=== PATIENT | female | born 1985 | race Hispanic/Latino ===

== ENCOUNTER 2018-03-30 07:47 | Emergency (ER) | payer OTHER ==
[2018-03-30] MEDS ORDERED: KETOROLAC TROMETHAMINE 60 MG/2 ML VIAL ONE (08:06)
== END 2018-03-30 08:55 | disposition home or self-care (01) ==
LOC: EDH 07:47
DX: S80.01XA Contusion of right knee, initial encounter (principal); X58.XXXA Exposure to other specified factors, initial encounter; Y93.89 Activity, other specified; Y92.59 Other trade areas as the place of occurrence of the external cause; Y99.8 Other external cause status
CPT/HCPCS: 73562; 96372; 99284; J1885

== ENCOUNTER 2019-02-01 16:47 | Emergency (ER) | payer OTHER ==
[2019-02-01] MEDS ORDERED: IBUPROFEN 400 MG TABLET ONE (17:30)
== END 2019-02-01 19:15 | disposition home or self-care (01) ==
LOC: EDH 16:47
DX: S43.402A Unspecified sprain of left shoulder joint, initial encounter (principal); S39.012A Strain of muscle, fascia and tendon of lower back, initial encounter; S80.01XA Contusion of right knee, initial encounter; M79.642 Pain in left hand; M79.641 Pain in right hand; W01.0XXA Fall on same level from slipping, tripping and stumbling without subsequent striking against object, initial encounter; Y93.89 Activity, other specified; Y92.238 Other place in hospital as the place of occurrence of the external cause; Y99.8 Other external cause status
CPT/HCPCS: 73030; 73562

== ENCOUNTER → 2019-03-29 | Outpatient (CLI) | payer OTHER | END | disposition home or self-care (01) | LOC: RAH 08:43 | PROVIDERS: ATTEND Family Medicine | DX: S46.912A Strain of unspecified muscle, fascia and tendon at shoulder and upper arm level, left arm, initial encounter (principal); S83.91XA Sprain of unspecified site of right knee, initial encounter; X58.XXXA Exposure to other specified factors, initial encounter; Y93.89 Activity, other specified; Y92.89 Other specified places as the place of occurrence of the external cause; Y99.8 Other external cause status | CPT/HCPCS: 73221 ==

== ENCOUNTER → 2019-04-17 | Outpatient (CLI) | payer OTHER | END | disposition home or self-care (01) | LOC: RAH 14:03 | PROVIDERS: ATTEND Family Medicine | DX: S83.91XA Sprain of unspecified site of right knee, initial encounter (principal); S43.402A Unspecified sprain of left shoulder joint, initial encounter; X58.XXXA Exposure to other specified factors, initial encounter; Y93.89 Activity, other specified; Y92.89 Other specified places as the place of occurrence of the external cause; Y99.8 Other external cause status | CPT/HCPCS: 73721 ==

== ENCOUNTER 2020-06-22 11:14 | Emergency (ER) | payer OTHER ==
[2020-06-22] MEDS ORDERED: TETRACAINE HCL 0.5% 4 ML OPHTH SOLN ONE (11:18)
== END 2020-06-22 11:34 | disposition home or self-care (01) ==
LOC: EDH 11:14
DX: S05.01XA Injury of conjunctiva and corneal abrasion without foreign body, right eye, initial encounter (principal); H10.89 Other conjunctivitis; X58.XXXA Exposure to other specified factors, initial encounter; Y93.89 Activity, other specified; Y92.89 Other specified places as the place of occurrence of the external cause; Y99.8 Other external cause status

== ENCOUNTER → 2022-07-11 | Outpatient (CLI) | payer OTHER | END | disposition home or self-care (01) | LOC: RAH 08:20 | PROVIDERS: ATTEND Obstetrics & Gynecology | DX: Z34.91 Encounter for supervision of normal pregnancy, unspecified, first trimester (principal); Z3A.01 Less than 8 weeks gestation of pregnancy | CPT/HCPCS: 76801 ==

== ENCOUNTER → 2022-12-13 | Outpatient (CLI) | payer OTHER ==
[2022-12-13 10:47] LABS: ALANINE AMINOTRANSFERASE 22 U/L (12-78); ALBUMIN 2.8 g/dL (3.5-5.0); ASPARTATE AMINOTRANSFERASE 18 U/L (10-37); CARBON DIOXIDE 22 mmol/L (21-32); CHLORIDE 103 mmol/L (101-111); CREATININE 0.3 mg/dL (0.5-1.5); GLOMERULAR FILTR. RATE CALC 265 mL/min (>60); GLUCOSE,RANDOM 107 mg/dL (70-105); POTASSIUM 3.9 mmol/L (3.5-5.1); SODIUM SERUM 135 mmol/L (136-145); TOTAL PROTEIN, SERUM 6.3 g/dL (6.0-8.3); UREA NITROGEN, BLOOD 10 mg/dL (7-18)
[2022-12-13 10:49] LABS: THYROID STIMULATING HORMONE < 0.01 uIU/mL (0.36-3.74)
== END | disposition home or self-care (01) ==
LOC: LAB 09:17
PROVIDERS: ATTEND Family Medicine
DX: R00.0 Tachycardia, unspecified (principal)
CPT/HCPCS: 36415; 80053; 82306; 84439; 84443; 84481

== ENCOUNTER → 2022-12-21 | Outpatient (CLI) | payer OTHER | END | disposition home or self-care (01) | LOC: RAH 15:26 | PROVIDERS: ATTEND Internal Medicine | DX: E05.90 Thyrotoxicosis, unspecified without thyrotoxic crisis or storm (principal) | CPT/HCPCS: 76536 ==

== ENCOUNTER → 2022-12-23 | Outpatient (CLI) | payer OTHER ==
[2022-12-23 10:01] LABS: HEMOGLOBIN A1C 5.5 % (4.0-6.0)
[2022-12-23 10:14] LABS: THYROID STIMULATING HORMONE < 0.01 uIU/mL (0.36-3.74)
== END | disposition home or self-care (01) ==
LOC: LAB 09:11
PROVIDERS: ATTEND Internal Medicine
DX: E05.90 Thyrotoxicosis, unspecified without thyrotoxic crisis or storm (principal)
CPT/HCPCS: 36415; 83036; 84439; 84443; 84445; 84480

== ENCOUNTER 2023-03-22 16:21 | Emergency (ER) | payer OTHER ==
[~2023-03-22] VITALS: Ht 157.5 cm; Wt 96.2 kg
[2023-03-22] MEDS ORDERED: METH-387 PO (17:12)
[2023-03-22] MEDS ORDERED: PROP40TA7 PO (17:12)
[2023-03-22 17:39] LABS: BASOPHILS % (AUTO) 0.6 % (0.0-5.0); EOSINOPHILS % (AUTO) 1.2 % (0.0-8.0); HEMATOCRIT 43.2 % (36-48); LYMPHOCYTES % (AUTO) 45.6 % (21.0-51.0); MEAN CORPUSCULAR HEMOGLOBIN 27.9 pg (27.0-33.0); MEAN CORPUSCULAR HGB CONC 33.1 g/dL (32.0-36.0); MEAN CORPUSCULAR VOLUME 84.4 fL (79-99); MONOCYTES % (AUTO) 14.1 % (3.0-13.0); NEUTROPHILS % (AUTO) 38.3 % (40.0-77.0); PLATELET COUNT (AUTO) 253 K/uL (130-400); RED BLOOD CELL COUNT(AUTO) 5.12 MIL/uL (4.00-5.50); RED CELL DISTRIBUTION WIDTH 12.8 % (11.0-15.5)
[2023-03-22 17:49] LABS: CARBON DIOXIDE 29 mmol/L (21-32); CHLORIDE 104 mmol/L (101-111); CREATININE 0.5 mg/dL (0.5-1.5); GLOMERULAR FILTR. RATE CALC 122 mL/min (>90); GLUCOSE,RANDOM 106 mg/dL (70-105); POTASSIUM 3.8 mmol/L (3.5-5.1); SODIUM SERUM 141 mmol/L (136-145); UREA NITROGEN, BLOOD 8 mg/dL (7-18)
[2023-03-22 17:52] LABS: APPEARANCE,URINE CLOUDY (CLEAR); BILIRUBIN,URINE NEGATIVE (NEGATIVE); COLOR,URINE YELLOW (YELLOW); GLUCOSE, URINE (UA) 150 mg/dL (NEGATIVE); KETONES,URINE NEGATIVE (NEGATIVE); LEUKOCYTE ESTERASE ,URINE NEGATIVE Leu/uL (NEGATIVE); NITRATE,URINE NEGATIVE (NEGATIVE); OCCULT BLOOD,URINE NEGATIVE (NEGATIVE); PROTEIN,URINE 100 mg/dL (NEGATIVE)
[2023-03-22 17:53] LABS: ALANINE AMINOTRANSFERASE 33 U/L (12-78); ALBUMIN 3.2 g/dL (3.5-5.0); ASPARTATE AMINOTRANSFERASE 27 U/L (10-37); TOTAL PROTEIN, SERUM 7.1 g/dL (6.0-8.3)
[2023-03-22 17:55] LABS: BACTERIA,URINE MOD /HPF (None Seen); MUCUS,URINE MANY LPF (None Seen); RBC,URINE 0-1 /HPF (0-1); SQUAMOUS EPITHELIAL CELL,UR FEW /HPF (0-2)
[2023-03-22 17:56] LABS: HCG,QUALITATIVE URINE NEGATIVE (NEGATIVE)
[2023-03-22 18:00] LABS: LIPASE < 50 U/L (114-286)
[2023-03-22] MEDS ORDERED: LOPERAMIDE HCL 2 MG CAP PO ONE (18:00)
[2023-03-22] MEDS ORDERED: ONDANSETRON 4MG INJ IVP ONE (18:00)
[2023-03-22 18:02] VITALS: BP 147/91
[2023-03-22] MEDS ORDERED: ONDA4TAB10 PO (18:30)
[2023-03-22] MEDS ORDERED: OSEL75 PO (18:30)
[2023-03-22] MEDS ORDERED: LOPE2CAP PO (18:30)
[2023-03-22] MEDS ORDERED: OSEL75CA17 PO (18:30)
[2023-03-22] MEDS ORDERED: GUAIFENESIN-CODEINE 5 ML SYRUP PO ONE (18:30)
== END 2023-03-22 18:48 | disposition home or self-care (01) ==
LOC: EDH 16:21
DX: K52.9 Noninfective gastroenteritis and colitis, unspecified (principal); J10.1 Influenza due to other identified influenza virus with other respiratory manifestations; E03.9 Hypothyroidism, unspecified; Z20.822 Contact with and (suspected) exposure to COVID-19; Z98.890 Other specified postprocedural states
CPT/HCPCS: 99283; 96374; 87635; 80053; 83690; 85025; 87088; 87804 ×2; 81001; 81025; 36415; C9803; J2405

== ENCOUNTER → 2023-07-21 | Outpatient (CLI) | payer OTHER ==
[~2023-07-21] MED LIST: LOPE2CAP PO; METH-387 PO; ONDA4TAB10 PO; OSEL75 PO; OSEL75CA17 PO; PROP40TA7 PO
[2023-07-21 16:52] LABS: BASOPHILS # (AUTO) 0.05 K/uL (0.00-0.20); BASOPHILS % (AUTO) 0.5 % (0.0-5.0); EOSINOPHILS # (AUTO) 0.25 K/uL (0.00-0.70); EOSINOPHILS % (AUTO) 2.6 % (0.0-8.0); HEMATOCRIT 39.8 % (36-48); IMMATURE GRANULOCYTE ABSOLUTE 0.03 K/uL (0-1); LYMPHOCYTES # (AUTO) 3.7 K/uL (1.0-4.8); MEAN CORPUSCULAR HEMOGLOBIN 28.2 pg (27.0-33.0); MEAN CORPUSCULAR HGB CONC 33.4 g/dL (32.0-36.0); MEAN CORPUSCULAR VOLUME 84.5 fL (79-99); MONOCYTES # (AUTO) 0.8 K/uL (0.1-1.0); NEUTROPHILS # (AUTO) 4.9 K/uL (1.8-7.7); NEUTROPHILS % (AUTO) 50.6 % (40.0-77.0); PLATELET COUNT (AUTO) 288 K/uL (130-400); RED BLOOD CELL COUNT(AUTO) 4.71 MIL/uL (4.00-5.50); RED CELL DISTRIBUTION WIDTH 12.7 % (11.0-15.5); WHITE BLOOD COUNT (AUTO) 9.6 K/uL (4.8-10.8)
[2023-07-21 17:28] LABS: ALANINE AMINOTRANSFERASE 28 U/L (12-78); ALBUMIN 2.9 g/dL (3.5-5.0); ASPARTATE AMINOTRANSFERASE 16 U/L (10-37); BILIRUBIN,TOTAL 0.2 mg/dL (0.2-1.0); CARBON DIOXIDE 23 mmol/L (21-32); CHLORIDE 107 mmol/L (101-111); CREATININE 0.5 mg/dL (0.5-1.5); GLOMERULAR FILTR. RATE CALC 122 mL/min (>90); GLUCOSE,RANDOM 121 mg/dL (70-105); POTASSIUM 3.7 mmol/L (3.5-5.1); SODIUM SERUM 140 mmol/L (136-145); TOTAL PROTEIN, SERUM 6.3 g/dL (6.0-8.3); UREA NITROGEN, BLOOD 10 mg/dL (7-18)
[2023-07-21 17:36] LABS: THYROID STIMULATING HORMONE < 0.01 uIU/mL (0.36-3.74)
== END | disposition home or self-care (01) ==
LOC: LAB 16:25
PROVIDERS: ATTEND Internal Medicine
DX: E05.90 Thyrotoxicosis, unspecified without thyrotoxic crisis or storm (principal)
CPT/HCPCS: 36415; 80053; 84439; 84443; 84480; 85025

== ENCOUNTER → 2023-09-22 | Outpatient (CLI) | payer OTHER ==
[2023-09-22 11:46] LABS: ALANINE AMINOTRANSFERASE 30 U/L (12-78); ALBUMIN 3.3 g/dL (3.5-5.0); ASPARTATE AMINOTRANSFERASE 24 U/L (10-37); BILIRUBIN,TOTAL 0.7 mg/dL (0.2-1.0); CARBON DIOXIDE 25 mmol/L (21-32); CREATININE 0.4 mg/dL (0.5-1.5); GLOMERULAR FILTR. RATE CALC 129 mL/min (>90); GLUCOSE,RANDOM 134 mg/dL (70-105); TOTAL PROTEIN, SERUM 6.7 g/dL (6.0-8.3); UREA NITROGEN, BLOOD 6 mg/dL (7-18)
[2023-09-22 11:49] LABS: CHLORIDE 103 mmol/L (101-111); POTASSIUM 3.8 mmol/L (3.5-5.1); SODIUM SERUM 136 mmol/L (136-145); THYROID STIMULATING HORMONE < 0.01 uIU/mL (0.36-3.74)
== END | disposition home or self-care (01) ==
LOC: LAB 09:37
PROVIDERS: ATTEND Internal Medicine
DX: E05.00 Thyrotoxicosis with diffuse goiter without thyrotoxic crisis or storm (principal)
CPT/HCPCS: 36415; 80053; 84439; 84443; 84480

== ENCOUNTER → 2024-02-16 | Outpatient (CLI) | payer OTHER ==
[2024-02-16 15:04] LABS: THYROID STIMULATING HORMONE < 0.01 uIU/mL (0.36-3.74)
== END | disposition home or self-care (01) ==
LOC: LAB 13:00
PROVIDERS: ATTEND Internal Medicine
DX: E05.00 Thyrotoxicosis with diffuse goiter without thyrotoxic crisis or storm (principal)
CPT/HCPCS: 36415; 84439; 84443; 84480

== ENCOUNTER 2024-10-05 09:03 | Emergency (ER) | payer OTHER ==
[~2024-10-05] VITALS: Ht 157.5 cm; Wt 95.3 kg
[~2024-10-05 09:03] MED LIST changes: +AMOX1TAB16 PO; +CEPH500B PO; +FEXO1TAB8 PO; +IBUP-2077 PO; +ONDA-243 PO; -ONDA4TAB10 PO
[2024-10-05 09:33] LABS: RAPID GROUP A STREP negative (NEGATIVE)
[2024-10-05 09:40] LABS: SARS-CoV-2, RNA, NAAT NEGATIVE SARS CoV-2 (NEGATIVE)
[2024-10-05 09:44] LABS: INFLUENZA TYPE A Negative For Type A (NEGATIVE); INFLUENZA TYPE B Negative For Type B (NEGATIVE)
[2024-10-05] MEDS: ketOROlac 15MG/ML VIAL (15MG/ML) IM ONE (10:13)
[2024-10-05] MEDS: Solu-medROL 40MG VIAL IM ONE (10:13)
--- NOTE | 2024-10-05 10:23 | ERN ---
General Chief Complaint: Flu Symptoms Stated Complaint: FLU-LIKE SYMPTOMS Time Seen by MD: 09:10 History of Present Illness Initial Comments 39-year-old female, otherwise healthy, who presents for flu-like illness. She reports two days of body aches, fever, headache, diarrhea, sore throat, cough. Allergies: Coded Allergies: No Known Allergies (Unverified Allergy, Unknown, 04/24/24) No Known Drug Allergies (Unverified Allergy, Unknown, 09/18/16) Home Meds Active Scripts Ibuprofen (Ibuprofen 800 mg Tab) 800 Mg Tab, 800 MG PO Q8H PRN for fever or pain, #30 TAB 0 Refills Prov:PATITO KELLY CABLE HOOKER 04/19/24 Oseltamivir Phosphate (Tamiflu) 75 Mg Cap, 75 MG PO BID for 5 Days, #1 CAP Prov:PATITO KELLY CABLE HOOKER 04/19/24 Ibuprofen (Ibuprofen 800 mg Tab) 800 Mg Tab, 800 MG PO Q8H PRN for fever or pain, #30 TAB 0 Refills Prov:FAYE SHORE MD 04/05/24 Ondansetron (Ondansetron Odt) 4 Mg Tab.rapdis, 4 MG PO Q6HPRN PRN for nausea, #16 TAB 0 Refills Prov:FAYE SHORE MD 04/05/24 Amoxicillin/Potassium Clav (Amox Tr-K Clv 875-125 mg Tab) 875 Mg-125 Mg Tablet, 1 EACH PO BID for 20 Days, #10 TAB 0 Refills Prov:FAYE SHORE MD 04/05/24 Oseltamivir Phosphate (Tamiflu) 75 Mg Cap, 75 MG PO BID, #10 CAP Prov:ALEKSANDRA ROTH MD 03/22/23 Oseltamivir Phosphate (Oseltamivir Phosphate) 75 Mg Capsule, 75 MG PO Q12H for 5 Days, #10 CAP Prov:ALEKSANDRA ROTH MD 03/22/23 Loperamide HCl (Imodium 2 mg Cap) 2 Mg Capsule, 2 MG PO TID for diarrhea for 3 Days, #7 CAP Prov:ALEKSANDRA ROTH MD 03/22/23 Ondansetron (Ondansetron Odt) 4 Mg Tab.rapdis, 4 MG PO Q6HPRN PRN for nausea, #16 TAB 0 Refills Prov:ALEKSANDRA ROTH MD 03/22/23 Fexofenadine/Pseudoephedrine (Jewell-D 24 Hour Tablet) 1 Each Tab.er.24h, 1 EACH PO DAILY, #30 TAB Prov:MEJIA MCDONOUGH 05/27/22 Amoxicillin/Potassium Clav (Amox Tr-K Clv 875-125 mg Tab) 1 Each Tablet, 1 EACH PO BID for 10 Days, #20 TAB Prov:MEJIA MCDONOUGH 05/27/22 Cephalexin Monohydrate (Keflex) 500 Mg Cap, 500 MG PO TID for 7 Days, #21 CAP Prov:MEJIA MCDONOUGH 05/14/22 Reported Medications Propranolol HCl (Propranolol HCl) 40 Mg Tablet, 40 MG PO BID, TAB 03/22/23 Methimazole (Methimazole) 10 Mg Tablet, 10 MG PO BID, TAB 03/22/23 Past Medical History Past Medical History: Anxiety, Hyperthyroid Past Surgical History: Social History Social History: Negative Female( History) : 5 Para: 4 ROS Dictation CONSTITUTIONAL: Fever body aches. HEAD/FACE: No signs of trauma. EENT: Sore throat RESPIRATORY: Cough CARDIOVASCULAR: No chest pain, no edema, no palpitations, no syncope. GASTROINTESTINAL/ABDOMINAL: No abdominal pain, no constipation, no diarrhea, no nausea, no vomiting. GENITOURINARY: No abnormal discharge, no dysuria, no frequent urination, no hematuria. No complaints of pain in the genitals. MUSCULOSKELETAL: No back pain, no gout, no joint pain, no joint swelling, no muscle pain, no muscle stiffness, no neck pain. INTEGUMENTARY: No change in color, no change in hair/nails, no dryness, no lesion, no lumps, no rash. NEUROLOGICAL/PSYCH: No anxiety, not depressed, no emotional problem, no headache, no numbness, no pre-existing deficit, no history of seizures, no tremors, no weakness. HEMATOLOGIC/LYMPHATIC: Not anemic, no history of blood clots, no apparent bleeding, no bruising, glands not swollen. All Systems Negative, Except as Noted. Physical Exam Physical Exam Dictation VITAL SIGNS: Reviewed. GENERAL APPEARANCE: Alert, oriented x3, no acute distress, obese. HEAD AND FACE: Non-traumatic. EYES: PERRL, pink conjunctivas, eyelid no trauma, anterior chamber clear. EARS: Pinnas intact and no signs of trauma or erythema. Ear canals clear and no discharge. TMs no erythema. NOSE: No discharge, no bleeding. OROPHARYNX: Mouth normal, teeth no caries, tongue pink. Pharynx clear, no erythema. Tonsils no exudates, no abscesses noted. Mucous membrane moist. NECK: Supple, non-tender, no thyromegaly, no masses, no JVD, no bruits. BREAST: Deferred. CHEST: No tenderness, no crepitus, no paradoxical movement, no retractions. LUNGS: Clear, well-ventilated, symmetric, no rales, no wheezing, no rhonchi, no stridor, good breath sounds bilaterally. HEART: Regular rate, regular rhythm, no murmur, no gallops. VASCULAR: No peripheral edema. ABDOMEN: Soft, positive bowel sounds, nondistended, no guarding, nontender, no rebound, no masses no hepatomegaly, no splenomegaly, no Selby's sign, no hernias. RECTAL: Deferred. GENITAL: Deferred. NEUROLOGICAL: Normal speech, gross motor function intact, gross sensory function intact. MUSCULOSKELETAL: Neck nontender, full range of motion, back nontender, full range of motion. EXTREMITIES: Nontender, full range of motion. SKIN: Color pink, dry, no turgor, no rash, no lacerations, no abrasions, no contusions. LYMPHATICS: Deferred. Results Laboratory and Microbiology Lab and Micro Result Laboratory Tests Test 10/05/24 09:14 Influenza Type A Antigen Negative For Type A Influenza Type B Antigen Negative For Type B SARS-CoV-2, RNA, NAAT NEGATIVE SARS CoV-2 Group A Streptococcus Rapid negative (NEGATIVE) MDM CC: Flu-like symptoms Historian: Patient Comorbidities: None Limitations by social determinants of health: None Vital signs: Stable here. Clinical exam is unremarkable Flu a and SARS are negative Symptoms are consistent with a flu-like illness. She received IM Toradol and Solu-Medrol here in the ER. We will discharge with symptomatic support recommend PCP follow up as needed. ED Course Orders Procedure Category Date Status Time Influenza Type A & B, LAB 10/05/24 Complete Rapid 09:09 Covid Rna Naat LAB 10/05/24 Complete :09 Rapid (Group A Strep) LAB 10/05/24 Complete 09:09 Methylprednisolone PHA 10/05/24 In Process Succ 40mg (Solu-Medro 10:30 Ketorolac PHA 10/05/24 In Process Tromethamine 15mg/Ml 10:30 Current Medications Medications (Trade) Dose Ordered Sig/Matthew Route PRN Reason Start Time Stop Time Status Last Admin Dose Admin Ketorolac Tromethamine (toRADol) 15 mg ONCE ONCE IM 10/05/24 10:30 10/05/24 10:31 10/05/24 10:13 Methylprednisolone Sodium Succinate (Solu-medROL 40MG) 40 mg ONCE ONCE IM 10/05/24 10:30 10/05/24 10:31 10/05/24 10:13 Vital Signs Date Time Temp Pulse Resp B/P (MAP) Pulse Ox O2 Delivery O2 Flow Rate FiO2 10/05/24 09:05 99.0 101 20 160/82 0 Room Air DX & DISP Disposition: Discharge Departure Impression: Primary Impression: Flu-like symptoms Condition: Stable Additional Instructions: Your symptoms are consistent with a flu-like illness. This type of infection does not require antibiotics and will generally clear on its own. Your influenza and COVID swabs were negative. I recommend you take Tylenol and ibuprofen as needed for fever or pain. You can take 1000 mg of Tylenol or 600 mg of ibuprofen. You can take [id number] cough and cold medications as needed. You received I am Toradol and IM Solu-Medrol here in the ER. Please return to the emergency department as needed. Referrals: JI SIM MD (PCP) CATHI HANKS DO Oct 05, 2024 10:23
[2024-10-05 12:31] VITALS: BP 145/78; PULSE 98; RESP 18; TEMP 99.6; O2SAT 98
== END 2024-10-05 12:32 | disposition home or self-care (01) ==
LOC: EDH 09:03
DX: R51.9 Headache, unspecified (principal); R19.7 Diarrhea, unspecified; J02.9 Acute pharyngitis, unspecified; R05.9 Cough, unspecified; F41.9 Anxiety disorder, unspecified; E05.90 Thyrotoxicosis, unspecified without thyrotoxic crisis or storm; Z79.899 Other long term (current) drug therapy; Z20.822 Contact with and (suspected) exposure to COVID-19
CPT/HCPCS: 99284; 87635; 87880; 87804 ×2; 96372 ×2; J2919; J1885

== ENCOUNTER 2024-10-09 07:12 | Emergency (ER) | payer OTHER ==
[~2024-10-09] VITALS: Ht 157.5 cm; Wt 96.6 kg
--- NOTE | 2024-10-09 07:45 | EKG ---
[facility] Test Date: 2024-10-09 Test Time: 07:40:09 Pat Name: ROMA HUNT Department: ED Patient ID: [id number] Room: Gender: F Senior Pastor: [birth year] : 1985 Requested By: JAN KINNEY Order Number: [id number] Reading MD: Carlos A Bobo Measurements Intervals [place] Rate: 76 P: -15 MS: 152 QRS: 44 QRSD: 86 T: 38 QT: 387 QTc: 436 Interpretive Statements Sinus rhythm Compared to ECG 04/19/2024 10:50:58 Sinus tachycardia no longer present Electronically Signed On 10-09-2024 19:17:41 INDUSTRIAL ANALYST by Carlos A Bobo Please click the below link to view image of tracing.
[2024-10-09 07:58] LABS: BASOPHILS # (AUTO) 0.03 K/uL (0.00-0.20); BASOPHILS % (AUTO) 0.5 % (0.0-5.0); EOSINOPHILS # (AUTO) 0.35 K/uL (0.00-0.70); EOSINOPHILS % (AUTO) 5.4 % (0.0-8.0); HEMATOCRIT 40.7 % (36-48); IMMATURE GRANULOCYTE ABSOLUTE 0.01 K/uL (0-1); LYMPHOCYTES # (AUTO) 3.7 K/uL (1.0-4.8); LYMPHOCYTES % (AUTO) 56.1 % (21.0-51.0); MEAN CORPUSCULAR HEMOGLOBIN 27.7 pg (27.0-33.0); MEAN CORPUSCULAR HGB CONC 33.2 g/dL (32.0-36.0); MEAN CORPUSCULAR VOLUME 83.4 fL (79-99); MONOCYTES # (AUTO) 0.5 K/uL (0.1-1.0); MONOCYTES % (AUTO) 6.9 % (3.0-13.0); NEUTROPHILS % (AUTO) 30.9 % (40.0-77.0); PLATELET COUNT (AUTO) 244 K/uL (130-400); RED BLOOD CELL COUNT(AUTO) 4.88 MIL/uL (4.00-5.50); WHITE BLOOD COUNT (AUTO) 6.5 K/uL (4.8-10.8)
--- NOTE | 2024-10-09 08:13 | ERN ---
ED Note History of Present Illness Stated Complaint: DIZZY Chief Complaint: Dizzy/Light Headed Time Seen by MD: 07:30 Dictation: 39-year-old female with history of Graves disease presents to the ED for evaluation of dizziness onset this morning. Patient describes this as a vertigo episode stating she has had similar episodes before, she also mentioned she has been sick since 4 days ago and has been experiencing vomiting and nausea. Allergies: Coded Allergies: No Known Allergies (Unverified Allergy, Unknown, 04/24/24) No Known Drug Allergies (Unverified Allergy, Unknown, 09/18/16) Home Meds Active Scripts Meclizine HCl (Meclizine HCl) 12.5 Mg Tablet, 1 TAB PO TID for dizziness for 10 Days, #30 TAB 0 Refills Prov:JAN KINNEY MD 10/09/24 Ibuprofen (Ibuprofen 800 mg Tab) 800 Mg Tab, 800 MG PO Q8H PRN for fever or pain, #30 TAB 0 Refills Prov:PATITO KELLY [employer] INSURANCE AGENT 04/19/24 Oseltamivir Phosphate (Tamiflu) 75 Mg Cap, 75 MG PO BID for 5 Days, #1 CAP Prov:PATITO KELLY [employer]UAL[employer] INSURANCE AGENT 04/19/24 Ibuprofen (Ibuprofen 800 mg Tab) 800 Mg Tab, 800 MG PO Q8H PRN for fever or pain, #30 TAB 0 Refills Prov:FAYE SHORE MD 04/05/24 Ondansetron (Ondansetron Odt) 4 Mg Tab.rapdis, 4 MG PO Q6HPRN PRN for nausea, #16 TAB 0 Refills Prov:FAYE SHORE MD 04/05/24 Amoxicillin/Potassium Clav (Amox Tr-K Clv 875-125 mg Tab) 875 Mg-125 Mg Tablet, 1 EACH PO BID for 20 Days, #10 TAB 0 Refills Prov:FAYE SHORE MD 04/05/24 Oseltamivir Phosphate (Tamiflu) 75 Mg Cap, 75 MG PO BID, #10 CAP Prov:ALEKSANDRA ROTH MD 03/22/23 Oseltamivir Phosphate (Oseltamivir Phosphate) 75 Mg Capsule, 75 MG PO Q12H for 5 Days, #10 CAP Prov:ALEKSANDRA ROTH MD 03/22/23 Loperamide HCl (Imodium 2 mg Cap) 2 Mg Capsule, 2 MG PO TID for diarrhea for 3 Days, #7 CAP Prov:ALEKSANDRA ROTH MD 03/22/23 Ondansetron (Ondansetron Odt) 4 Mg Tab.rapdis, 4 MG PO Q6HPRN PRN for nausea, #16 TAB 0 Refills Prov:ALEKSANDRA ROTH MD 03/22/23 Fexofenadine/Pseudoephedrine (Jewell-D 24 Hour Tablet) 1 Each Tab.er.24h, 1 EACH PO DAILY, #30 TAB Prov:MEJIA MCDONOUGH 05/27/22 Amoxicillin/Potassium Clav (Amox Tr-K Clv 875-125 mg Tab) 1 Each Tablet, 1 EACH PO BID for 10 Days, #20 TAB Prov:MEJIA MCDONOUGH 05/27/22 Cephalexin Monohydrate (Keflex) 500 Mg Cap, 500 MG PO TID for 7 Days, #21 CAP Prov:MEJIA MCDONOUGH 05/14/22 Reported Medications Propranolol HCl (Propranolol HCl) 40 Mg Tablet, 40 MG PO BID, TAB 03/22/23 Methimazole (Methimazole) 10 Mg Tablet, 10 MG PO BID, TAB 03/22/23 Past Medical History Past Medical History: Anxiety, Hyperthyroid Surgical History: Social History: Negative : 5 Para: 4 Review of System Dictation Constitutional: Negative for fever,chills, and weight loss Eyes: Negative for injury, pain,redness, and discharge ENT: Negative for injury,pain or swelling Cardiovascular: Negative for chest pain, palpitations, and edema Respiratory: Negative for shortness of breath, cough, and wheezing, Abdomen/GI: Positive for nausea, vomiting,Negative for abdominal pain, diarrhea, and constipation Back: Negative for injury and pain : Negative for injury, bleeding and discharge MS/Extremity: Negative for injury and deformity Skin: Negative for rash, and discoloration Neuro: Positive for dizziness Negative for headache, weakness, numbness, tingling, and seizure Psych: Negative for suicide ideation, homicidal ideation, and hallucinations Initial Vital Sign VS Vital Signs Date Time Temp Pulse Resp B/P (MAP) Pulse Ox O2 Delivery O2 Flow Rate FiO2 10/09/24 07:17 98.6 79 18 156/86 99 10/09/24 07:45 Room Air* 0 21 Physical Exam Dictation General: awake, alert, NAD Head/Face: Normocephalic, atraumatic Eyes: PERRL, EOMI, vision at baseline ENT: oral cavity clear, TMs clear, no signs of infection Neck: Trachea midline, supple, no nuchal rigidity Cardiovascular: RRR, normal S1/S2, No MRGs, no JVD Respiratory: CTAB, no respiratory distress, No rales or wheezes Abdomen: Soft, non-tender, non-distended, normal bowel sounds, no guarding or rebound. Skin: Warm, dry, normal turgor, no rash MS/Extremity: Pulses equal, no cyanosis, neurovascular intact, FROM Neuro: COAx4, GCS 15, strength 5/5, CN 2-12 intact, normal cerebellar exam, normal gait, Psych: Normal behavior, mood, and affect normal Results (Laboratory/Radiology) Laboratory/Radiology Laboratory Tests Test 10/09/24 07:42 10/09/24 09:04 White Blood Count 6.5 K/uL (4.8-10.8) Red Blood Count 4.88 MIL/uL (4.00-5.50) Hemoglobin 13.5 g/dL (12.0-16.0) Hematocrit 40.7 % (36-48) Mean Corpuscular Volume 83.4 fL (79-99) Mean Corpuscular Hemoglobin 27.7 pg (27.0-33.0) Mean Corpuscular Hemoglobin Concent 33.2 g/dL (32.0-36.0) Red Cell Distribution Width 13.0 % (11.0-15.5) Platelet Count 244 K/uL (130-400) Mean Platelet Volume 8.9 fL (7.5-10.5) Immature Granulocyte % (Auto) 0.2 % (0-1) Neutrophils (%) (Auto) 30.9 % (40.0-77.0) L Lymphocytes (%) (Auto) 56.1 % (21.0-51.0) H Monocytes (%) (Auto) 6.9 % (3.0-13.0) Eosinophils (%) (Auto) 5.4 % (0.0-8.0) Basophils (%) (Auto) 0.5 % (0.0-5.0) Neutrophils # (Auto) 2.0 K/uL (1.8-7.7) Lymphocytes # (Auto) 3.7 K/uL (1.0-4.8) Monocytes # (Auto) 0.5 K/uL (0.1-1.0) Eosinophils # (Auto) 0.35 K/uL (0.00-0.70) Basophils # (Auto) 0.03 K/uL (0.00-0.20) Absolute Immature Granulocyte (auto 0.01 K/uL (0-1) Nucleated Red Blood Cells 0.0 % (0.0-0.19) Sodium Level 138 mmol/L (136-145) Potassium Level 3.2 mmol/L (3.5-5.1) L Chloride Level 104 mmol/L (101-111) Carbon Dioxide Level 26 mmol/L (21-32) Blood Urea Nitrogen 8 mg/dL (7-18) Creatinine 0.4 mg/dL (0.5-1.0) L Glomerular Filtration Rate Calc 128 mL/min (>90) Random Glucose 109 mg/dL (70-105) H Total Calcium 8.6 mg/dL (8.5-10.1) Total Bilirubin 0.5 mg/dL (0.2-1.0) Direct Bilirubin 0.1 mg/dL (0.0-0.3) Aspartate Amino Transf (AST/SGOT) 17 U/L (10-37) Alanine Aminotransferase (ALT/SGPT) 25 U/L (12-78) Alkaline Phosphatase 142 U/L (50-136) H Troponin I High Sensitivity 7 ng/L (4-50) B-Type Natriuretic Peptide 27 pg/mL (0-100) Total Protein 7.2 g/dL (6.0-8.3) Albumin 3.2 g/dL (3.5-5.0) L Influenza Type A Antigen Negative For Type A Influenza Type B Antigen Negative For Type B SARS-CoV-2 Antigen (Rapid) PRESUMPTIVE NEGATIVE Labs Reviewed?: Yes EKG Comment: EKG 10/09/2024 time 7:40 a.m. ventricular rate 76, MI 152, QRS D 86, QT 387. Sinus rhythm. No STEMI CT Scan Comment: CT independently visualized by me REASON: dizzy ORDERING PHYSICIAN: JAN KINNEY MD PROCEDURE: HEAD WO - CT HEAD/BRAIN W/O CONTRAST Exam: NONCONTRAST CT BRAIN REASON: dizzy. COMPARISON: None. TECHNIQUE: Images are obtained from vertex to the skull base. The exam was performed without IV contrast. FINDINGS: There is normal appearing brain parenchyma. There are no focal mass lesions. There is is no evidence of intracranial hemorrhage or acute stroke. Ventricles and sulci appear normal. Posterior fossa and brainstem structures are unremarkable. Paranasal sinuses and remaining extracranial soft tissues appear normal as well. IMPRESSION: 1. Normal noncontrast CT brain. CT was performed with one or more following dose reduction techniques: automated exposure control, adjustment of the mA and kv according to patient's size, or use of a iterative reconstruction technique. DICTATED BY: JOE MELLO MD DATE: 10/09/24 08 ED Course ED Course Orders Procedure Category Date Status Time 12 Lead Ekg Tracing- EKG 10/09/24 Complete Technical 07:32 B-Type Natriuretic LAB 10/09/24 In Process Peptide 07:32 Basic Metabolic Panel LAB 10/09/24 Complete 07:32 Cbc With Differential LAB 10/09/24 In Process 07:32 Hepatic Function Panel LAB 10/09/24 Complete 07:32 Troponin I High LAB 10/09/24 Complete Sensitivity 07:32 Covid19 (Sars Antigen LAB 10/09/24 Complete Rapid) 08:11 Influenza Type A & B, LAB 10/09/24 Complete Rapid 08:11 0.9%Nacl 1000ml (Ns PHA 10/09/24 Complete 1000ml) 08:30 Ct Head/Brain W/O CT 10/09/24 Resulted Contrast 08:12 Manual Differential LAB 10/09/24 In Process 07:42 Current Medications Medications (Trade) Dose Ordered Sig/Matthew Route PRN Reason Start Time Stop Time Status Last Admin Dose Admin Sodium Chloride 1,000 ml @ 0 mls/hr ONCE ONCE IV 10/09/24 08:30 10/09/24 08:31 DC 10/09/24 09:00 Vital Signs Date Time Temp Pulse Resp B/P (MAP) Pulse Ox O2 Delivery O2 Flow Rate FiO2 10/09/24 10:35 98.4 81 18 126/41 98 Room Air* 0 21 10/09/24 07:45 98.4 81 18 165/76 98 Room Air* 0 21 10/09/24 07:17 98.6 79 18 156/86 99 HEART Score Response (Comments) Value History: Low suspicion (0) 0 EKG: Normal 0 Age: < 45yrs (0) 0 Risk Factors: No known risk factors (0) 0 Initial Troponin: Normal limit (0) 0 HEART Score Risk: Low Risk for MACE (1-3) Total 0 Medical Decision Making MDM MDM: Differential diagnosis: Vertigo, dehydration, weakness Previous outside records reviewed: Old ER visits. Need for hospitalization: Patient does not meet criteria for hospitalization. Need for emergency major/minor surgery: No Patient's prior external medical records from other ER visits were reviewed by me as indicated. Prior testing and results from previous visits were reviewed. Prior tests were taken into account with medical decision making and resource utilization, independent historian/historians were used to obtain complete medical history. I independently interpreted the test that were performed, results were reviewed by me and considered findings on radiology if ordered. Medical management and examination interpretation discussions were had by me with other qualified healthcare professionals as indicated for the patient's care. DX & DISP Disposition: Discharge Departure Impression: Primary Impression: Vertigo Additional Impression: Acute weakness Condition: Stable Scripts Meclizine HCl (Meclizine HCl) 12.5 Mg Tablet 1 TAB PO TID for dizziness for 10 Days, #30 TAB 0 Refills Prov: JAN KINNEY MD 10/09/24 Referrals: JI SIM MD (PCP) I have reviewed, & agreed with my scribe's, documentation. (Entered by Davide Guzmán, acting as a scribe for Dr. Kinney) I personally scribed for JAN KINNEY MD ([facility] on 10/09/24 at 08:13. Electronically submitted by Davide Guzmán ([employer]). I personally scribed for JAN KINNEY MD ([facility] on 10/09/24 at 08:24. Electronically submitted by Davide Guzmán ([employer]). I personally scribed for JAN KINNEY MD ([facility] on 10/09/24 at 10:36. Electronically submitted by Davide Guzmán ([employer]). I personally scribed for JAN KINNEY MD ([facility] on 10/09/24 at 10:42. Electronically submitted by Davide Guzmán ([email or web address]). JAN KINNEY MD Oct 09, 2024 08:13
[2024-10-09 08:15] LABS: CREATININE 0.4 mg/dL (0.5-1.0); POTASSIUM 3.2 mmol/L (3.5-5.1)
[2024-10-09 08:19] LABS: ALBUMIN 3.2 g/dL (3.5-5.0); BILIRUBIN,DIRECT 0.1 mg/dL (0.0-0.3); BILIRUBIN,TOTAL 0.5 mg/dL (0.2-1.0); TOTAL PROTEIN, SERUM 7.2 g/dL (6.0-8.3)
--- NOTE | 2024-10-09 08:38 | HMCIMG ---
Exam: NONCONTRAST CT BRAIN REASON: dizzy. COMPARISON: None. TECHNIQUE: Images are obtained from vertex to the skull base. The exam was performed without IV contrast. FINDINGS: There is normal appearing brain parenchyma. There are no focal mass lesions. There is is no evidence of intracranial hemorrhage or acute stroke. Ventricles and sulci appear normal. Posterior fossa and brainstem structures are unremarkable. Paranasal sinuses and remaining extracranial soft tissues appear normal as well. IMPRESSION: 1. Normal noncontrast CT brain. CT was performed with one or more following dose reduction techniques: automated exposure control, adjustment of the mA and kv according to patient's size, or use of a iterative reconstruction technique.
[2024-10-09] MEDS: 0.9%NACL 1000ML 1,000 ML IV ONE (09:00)
[2024-10-09 09:02] LABS: B-TYPE NATRIURETIC PEPTIDE 27 pg/mL (0-100)
[2024-10-09 09:44] LABS: COVID19 (SARS ANTIGEN RAPID) PRESUMPTIVE NEGATIVE (NEGATIVE); INFLUENZA TYPE A Negative For Type A (NEGATIVE); INFLUENZA TYPE B Negative For Type B (NEGATIVE)
[2024-10-09 10:35] VITALS: BP 126/41; PULSE 81; RESP 18; TEMP 98.4; O2SAT 98
[2024-10-09] MEDS ORDERED: MECL-226 PO (10:40)
[2024-10-09 10:46] LABS: EOSINOPHILS % (MANUAL) 6 % (1-6); LYMPHOCYTES % (MANUAL) 56 % (22-44); MONOCYTES % (MANUAL) 3 % (2-9); SEGMENTED NEUTROPHILS % 35 % (40-70); TOTAL CELLS COUNTED 100
[2024-10-09 10:47] LABS: MAN.DIFF COMMENT-IMPRESSION MANUAL DIFFERENTIAL; PLATELET MORPHOLOGY COMMENT ADEQUATE; WBC MORPHOLOGY REACTIVE LYMPHS 2+
== END 2024-10-09 11:44 | disposition home or self-care (01) ==
LOC: EDH 07:12
DX: R42 Dizziness and giddiness (principal); R53.1 Weakness; Z20.822 Contact with and (suspected) exposure to COVID-19
CPT/HCPCS: 99284; 96360; 70450; 87426; 80076; 84484; 80048; 83880; 85025; 87804 ×2; 36415; 93005; J7030

== ENCOUNTER → 2025-02-05 | Outpatient (CLI) | payer OTHER ==
[~2025-02-05] MED LIST changes: +MECL-226 PO
[2025-02-05 12:18] LABS: BASOPHILS # (AUTO) 0.04 K/uL (0.00-0.20); BASOPHILS % (AUTO) 0.4 % (0.0-5.0); EOSINOPHILS # (AUTO) 0.18 K/uL (0.00-0.70); EOSINOPHILS % (AUTO) 1.6 % (0.0-8.0); HEMATOCRIT 39.4 % (36-48); IMMATURE GRANULOCYTE ABSOLUTE 0.03 K/uL (0-1); LYMPHOCYTES # (AUTO) 2.9 K/uL (1.0-4.8); LYMPHOCYTES % (AUTO) 26.4 % (21.0-51.0); MEAN CORPUSCULAR VOLUME 84.9 fL (79-99); MONOCYTES # (AUTO) 0.9 K/uL (0.1-1.0); NEUTROPHILS % (AUTO) 63.3 % (40.0-77.0); PLATELET COUNT (AUTO) 318 K/uL (130-400); RED BLOOD CELL COUNT(AUTO) 4.64 MIL/uL (4.00-5.50); RED CELL DISTRIBUTION WIDTH 13.1 % (11.0-15.5)
[2025-02-05 12:47] LABS: ALANINE AMINOTRANSFERASE 33 U/L (12-78); ALBUMIN 3.2 g/dL (3.5-5.0); ASPARTATE AMINOTRANSFERASE 25 U/L (10-37); BILIRUBIN,TOTAL 0.4 mg/dL (0.2-1.0); CARBON DIOXIDE 29 mmol/L (21-32); CHLORIDE 105 mmol/L (101-111); CREATININE 0.4 mg/dL (0.5-1.0); GLOMERULAR FILTR. RATE CALC 128 mL/min (>90); GLUCOSE,RANDOM 113 mg/dL (70-105); POTASSIUM 4.4 mmol/L (3.5-5.1); SODIUM SERUM 137 mmol/L (136-145); TOTAL PROTEIN, SERUM 7.1 g/dL (6.0-8.3); UREA NITROGEN, BLOOD 9 mg/dL (7-18)
[2025-02-05 12:52] LABS: THYROID STIMULATING HORMONE < 0.01 uIU/mL (0.36-3.74)
== END | disposition home or self-care (01) ==
LOC: LAB 10:37
PROVIDERS: ATTEND Internal Medicine
DX: E05.90 Thyrotoxicosis, unspecified without thyrotoxic crisis or storm (principal); E03.9 Hypothyroidism, unspecified
CPT/HCPCS: 36415; 80053; 84439; 84443; 84480; 85025

== ENCOUNTER → 2025-08-04 | Outpatient (CLI) | payer OTHER | END | disposition home or self-care (01) | LOC: RAH 13:34 | PROVIDERS: ATTEND Nurse Practitioner Family | DX: Z12.31 Encounter for screening mammogram for malignant neoplasm of breast (principal) | CPT/HCPCS: 77063; 77067 ==

== ENCOUNTER → 2025-08-11 | Outpatient (CLI) | payer OTHER ==
[2025-08-11 10:29] LABS: IMMATURE GRANULOCYTE ABSOLUTE 0.02 K/uL (0-1); NUCLEATED RED BLOOD CELLS 0.0 % (0.0-0.19); PLATELET COUNT (AUTO) 333 K/uL (130-400); RED BLOOD CELL COUNT(AUTO) 4.81 MIL/uL (4.00-5.50); RED CELL DISTRIBUTION WIDTH 12.9 % (11.0-15.5); WHITE BLOOD COUNT (AUTO) 8.6 K/uL (4.8-10.8)
[2025-08-11 11:10] LABS: ASPARTATE AMINOTRANSFERASE 18 U/L (10-37); CREATININE 0.3 mg/dL (0.5-1.0); GLOMERULAR FILTR. RATE CALC 137 mL/min (>90); GLUCOSE,RANDOM 105 mg/dL (70-105); LDL DIRECT 69 mg/dL (0-99); SODIUM SERUM 140 mmol/L (136-145); TOTAL PROTEIN, SERUM 7.3 g/dL (6.0-8.3); UREA NITROGEN, BLOOD 10 mg/dL (7-18)
[2025-08-11 14:56] LABS: ADD UA MICROSCOPIC YES; APPEARANCE,URINE CLEAR (CLEAR); GLUCOSE, URINE (UA) 500 mg/dL (NEGATIVE); LEUKOCYTE ESTERASE ,URINE NEGATIVE Leu/uL (NEGATIVE); NITRATE,URINE NEGATIVE (NEGATIVE); OCCULT BLOOD,URINE +- (TRACE) (NEGATIVE)
[2025-08-11 15:03] LABS: SQUAMOUS EPITHELIAL CELL,UR RARE /HPF (0-2)
== END | disposition home or self-care (01) ==
LOC: LAB 09:24
PROVIDERS: ATTEND Nurse Practitioner Family
DX: E55.9 Vitamin D deficiency, unspecified (principal); Z13.1 Encounter for screening for diabetes mellitus; R53.83 Other fatigue; Z13.220 Encounter for screening for lipoid disorders; Z11.59 Encounter for screening for other viral diseases; Z00.01 Encounter for general adult medical examination with abnormal findings; E05.90 Thyrotoxicosis, unspecified without thyrotoxic crisis or storm
CPT/HCPCS: 36415; 80053; 80061; 81001; 82306; 82607; 83036; 83735; 84439; 84443; 85025; 86376; 86800; 86803

== ENCOUNTER 2025-09-11 10:46 | Emergency (ER) | payer OTHER ==
[~2025-09-11] VITALS: Ht 157.5 cm; Wt 99.8 kg
--- NOTE | 2025-09-11 10:54 | ERN ---
ED Note History of Present Illness Stated Complaint: LT LOWER BACK PAIN Chief Complaint: Back Pain-No Injury Time Seen by MD: 10:48 Dictation: PATIENT IS A 40-YEAR-OLD FEMALE HERE WITH COMPLAINTS OF LEFT GLUTEAL PAIN THAT RADIATES DOWN THE POSTERIOR LEFT LEG ONSET 4-5 DAYS. SHE DENIES ANY HISTORY OF TRAUMA. SHE JUST STATE HE OF THE DAY SHE HAD TURNED AND FELT A PULL IN HER LOW BACK. NO CHANGE IN BOWEL OR BLADDER FUNCTION. SHE HAS BEEN TO SEE HER PRIMARY CARE DOCTOR WHO GAVE HER IBUPROFEN AND TOLD HER IF IT GOT WORSE. NO FEVER NO CHILLS NO CHANGE IN URINATION. Allergies: Coded Allergies: No Known Allergies (Unverified Allergy, Unknown, 04/24/24) No Known Drug Allergies (Unverified Allergy, Unknown, 09/18/16) Home Meds Active Scripts Meclizine HCl (Meclizine HCl) 12.5 Mg Tablet, 1 TAB PO TID for dizziness for 10 Days, #30 TAB 0 Refills Prov:JAN KINNEY MD 10/09/24 Ibuprofen (Ibuprofen 800 mg Tab) 800 Mg Tab, 800 MG PO Q8H PRN for fever or pain, #30 TAB 0 Refills Prov:PATITO KELLYP 04/19/24 Oseltamivir Phosphate (Tamiflu) 75 Mg Cap, 75 MG PO BID for 5 Days, #1 CAP Prov:PATITO KELLYP 04/19/24 Ibuprofen (Ibuprofen 800 mg Tab) 800 Mg Tab, 800 MG PO Q8H PRN for fever or pain, #30 TAB 0 Refills Prov:FAYE SHORE MD 04/05/24 Ondansetron (Ondansetron Odt) 4 Mg Tab.rapdis, 4 MG PO Q6HPRN PRN for nausea, #16 TAB 0 Refills Prov:FAYE SHORE MD 04/05/24 Amoxicillin/Potassium Clav (Amox Tr-K Clv 875-125 mg Tab) 875 Mg-125 Mg Tablet, 1 EACH PO BID for 20 Days, #10 TAB 0 Refills Prov:FAYE SHORE MD 04/05/24 Oseltamivir Phosphate (Tamiflu) 75 Mg Cap, 75 MG PO BID, #10 CAP Prov:ALEKSANDRA ROTH MD 03/22/23 Oseltamivir Phosphate (Oseltamivir Phosphate) 75 Mg Capsule, 75 MG PO Q12H for 5 Days, #10 CAP Prov:ALEKSANDRA ROTH MD 03/22/23 Loperamide HCl (Imodium 2 mg Cap) 2 Mg Capsule, 2 MG PO TID for diarrhea for 3 Days, #7 CAP Prov:ALEKSANDRA ROTH MD 03/22/23 Ondansetron (Ondansetron Odt) 4 Mg Tab.rapdis, 4 MG PO Q6HPRN PRN for nausea, #16 TAB 0 Refills Prov:ALEKSANDRA ROTH MD 03/22/23 Fexofenadine/Pseudoephedrine (Jewell-D 24 Hour Tablet) 1 Each Tab.er.24h, 1 EACH PO DAILY, #30 TAB Prov:MEJIA MCDONOUGH 05/27/22 Amoxicillin/Potassium Clav (Amox Tr-K Clv 875-125 mg Tab) 1 Each Tablet, 1 EACH PO BID for 10 Days, #20 TAB Prov:MEJIA MCDONOUGH 05/27/22 Cephalexin Monohydrate (Keflex) 500 Mg Cap, 500 MG PO TID for 7 Days, #21 CAP Prov:MEJIA MCDONOUGH 05/14/22 Reported Medications Propranolol HCl (Propranolol HCl) 40 Mg Tablet, 40 MG PO BID, TAB 03/22/23 Methimazole (Methimazole) 10 Mg Tablet, 10 MG PO BID, TAB 03/22/23 Past Medical History Past Medical History: Anxiety, Hyperthyroid Surgical History: Social History: Negative History: Not Applicable : 5 Para: 4 RN Note Reviewed/Agreed w/PFSH: Yes Review of System Dictation CONSTITUTIONAL: NEGATIVE EXCEPT FOR HPI HEAD/FACE: NEGATIVE EXCEPT FOR HPI EENT: NEGATIVE EXCEPT FOR HPI RESPIRATORY: NEGATIVE EXCEPT FOR HPI GASTROINTESTINAL/ABDOMINAL: NEGATIVE EXCEPT FOR HPI GENITOURINARY: NEGATIVE EXCEPT FOR HPI MUSCULOSKELETAL: NEGATIVE EXCEPT FOR HPI LEFT GLUTEAL PAIN THAT RADIATES POSTERIOR LEFT LEG INTEGUMENTARY: NEGATIVE EXCEPT FOR HPI NEUROLOGICAL/PSYCH: NEGATIVE EXCEPT FOR HPI HEMATOLOGIC/LYMPHATIC: NEGATIVE EXCEPT FOR HPI ALL SYSTEMS NEGATIVE, EXCEPT NOTED ABOVE. 13 POINT REVIEW OF SYSTEMS ASSESSED AND ALL NEGATIVE EXCEPT FOR ABOVE. Initial Vital Sign VS Vital Signs Date Time Temp Pulse Resp B/P (MAP) Pulse Ox O2 Delivery O2 Flow Rate FiO2 09/11/25 10:48 98.6 105 20 142/66 99 Room Air 09/11/25 11:00 0 21 Physical Exam Dictation VITAL SIGNS REVIEWED GENERAL APPEARANCE: ALERT, ORIENTED X 3, MODERATE ACUTE DISTRESS, WELL DEVELOPED, NOURISHED. HEAD AND FACE: NON-TRAUMATIC. EYES: PERRL, PINK CONJUNCTIVAS, EYELID NO TRAUMA, ANTERIOR CHAMBER WITH ARCUS SENILIS. EARS: PINNAS INTACT AND NO SIGNS OF TRAUMA OR ERYTHEMA EAR CANALS CLEAR AND NO DISCHARGE TM NO ERYTHEMA NOSE: NO DISCHARGE, NO BLEEDING. OROPHARYNX: MOUTH NORMAL, TONGUE PINK, PHARYNX CLEAR,NO ERYTHEMA, TONSILS NO EXUDATES, NO ABSCESSES NOTED, MUCOUS MEMBRANE MOIST NECK: SUPPLE, NON-TENDER, NO THYROMEGALY, NO MASSES, NO JVD, NO BRUITS BREAST:DEFERRED CHEST:NO TENDERNESS, NO CREPITUS, NO PARADOXICAL MOVEMENT, NO RETRACTIONS LUNGS:CLEAR, WELL-VENTILATED, SYMMETRIC, NO RALES, NO WHEEZING, NO RHONCHI, NO STRIDOR, GOOD BREATH SOUNDS BILATERALLY HEART: REGULAR RATE, REGULAR RHYTHM, NO MURMUR, NO GALLOPS VASCULAR: NO PERIPHERAL EDEMA, ABDOMEN: SOFT, POSITIVE BOWEL SOUNDS, NONDISTENDED, NO GUARDING, NONTENDER, NO REBOUND, NO MASSES NO HEPATOMEGALY, NO SPLENOMEGALY, NO MAURICIO'S SIGN, NO HERNIAS. RECTAL: DEFERRED GENITAL: DEFERRED NEUROLOGICAL: NORMAL SPEECH, MOTOR FUNCTION INTACT, SENSORY FUNCTION INTACT MUSCULOSKELETAL: NECK NONTENDER, FULL RANGE OF MOTION, LEFT MID GLUTEAL TENDERNESS WITH PALPATION. EXTREMITIES: NONTENDER, FULL RANGE OF MOTION SKIN: COLOR PINK, DRY, NO TURGOR, NO RASH, NO LACERATIONS, NO ABRASIONS, NO CONTUSIONS. LYMPHATIC: DEFERRED Results (Laboratory/Radiology) Laboratory/Radiology 1155/LUMBAR X-RAY NEGATIVE Labs Reviewed?: Yes ED Course ED Course Orders Procedure Category Date Status Time Lumbar Spine 2-3vws RAD 09/11/25 Taken 10:51 Acetaminophen 500mg PHA 09/11/25 Complete Tab (Tylenol 500mg T 11:00 Dexamethasone 4mg/Ml PHA 09/11/25 Complete 1ml Vial (Dexametha 11:00 Current Medications Medications (Trade) Dose Ordered Sig/Matthew Route PRN Reason Start Time Stop Time Status Last Admin Dose Admin Acetaminophen (TYLenol 500MG TAB) 1,000 mg ONCE ONCE PO 09/11/25 11:00 09/11/25 11:01 DC 09/11/25 11:51 Dexamethasone Sodium Phosphate (dexaMETHasone 4MG/ML 1ML VIAL) 8 mg ONCE ONCE IM 09/11/25 11:00 09/11/25 11:01 DC 09/11/25 11:50 Vital Signs Date Time Temp Pulse Resp B/P (MAP) Pulse Ox O2 Delivery O2 Flow Rate FiO2 09/11/25 11:00 98.6 105 20 142/66 Room Air* 0 21 09/11/25 10:48 98.6 105 20 142/66 99 Room Air 1155/PAIN REDUCED AFTER TREATMENT WITH DECADRON AND TYLENOL. DISCHARGED HOME WITH DIAGNOSIS PIRIFORMIS SYNDROME Medical Decision Making MDM MEDICAL DISCHARGE MAKING BASED ON EMPIRIC TREATMENT FOR LUMBAR PAIN WITH SCIATICA. LUMBAR X-RAY NEGATIVE PAIN IS CENTRALIZED TO THE LEFT GLUTEUS RADIATING POSTERIOR LEFT LEG DIAGNOSIS WE WILL BE PIRIFORMIS SYNDROME DX & DISP Disposition: Discharge Departure Impression: Primary Impression: Piriformis syndrome of left side Condition: Stable Scripts Prednisone (Prednisone) 20 Mg Tablet 1 TAB PO AD for 6 Days, #14 TAB 0 Refills TAKE 1 TAB BY MOUTH THREE TIMES PER DAY X3 DAYS, THEN TAKE 1 TAB BY MOUTH TWICE A DAY X2 DAYS, THEN TAKE 1 TAB BY MOUTH ONCE A DAY X1 DAY. TAKE WITH FOOD Prov: PATITO KELLY ASSISTANT MAINTENANCE MANAGER 09/11/25 Cyclobenzaprine HCl (Cyclobenzaprine HCl) 10 Mg Tablet 1 TAB PO TID for muscle spasms for 10 Days, #30 TAB 0 Refills Prov: PATITO KELLY ASSISTANT MAINTENANCE MANAGER 09/11/25 Ibuprofen (Ibuprofen 800 mg Tab) 800 Mg Tab 800 MG PO Q8H PRN for fever or pain, #30 TAB 0 Refills Prov: PATITO KELLY ASSISTANT MAINTENANCE MANAGER 09/11/25 Additional Instructions: FOLLOW-UP WITH PRIMARY CARE PROVIDER IN 1 TO 2 DAYS. TAKE MEDICATIONS DIRECTED HERE IN THE EMERGENCY ROOM. OKAY TO CONTINUE HOME MEDICATIONS UNLESS OTHERWISE DISCUSSED DURING YOUR VISIT IN THE EMERGENCY ROOM TODAY. RETURN TO YOUR NEAREST EMERGENCY ROOM IF SYMPTOMS WORSEN OR IF THERE IS NO IMPROVEMENT. CALL 911 IF YOU NEED IMMEDIATE ASSISTANCE. TAKE TYLENOL OR MOTRIN [id number] NEEDED AND IF NO CONTRAINDICATIONS ARE PRESENT. INCREASE ORAL HYDRATION. A WOUND CULTURE OR URINE CULTURE WAS ORDERED HERE IN THE EMERGENCY ROOM DEPARTMENT PLEASE FOLLOW-UP WITH PRIMARY CARE PROVIDER AND ADVISE THEM TO GET REPEAT PORTS FROM OUR FACILITY. IF YOU HAD ANY BELINDA WRAP/SPLINTS THAT WERE APPLIED HERE, PLEASE DO NOT REMOVE THEM UNTIL YOU SEE YOUR PRIMARY CARE OR SPECIALTY. TAKE IBUPROFEN AND FLEXERIL EVERY 8 HOURS WITH FOOD FOR THE NEXT THREE DAYS. TAKE FLEXERIL ONLY AT NIGHT IF MAKES YOU TOO SEDATING. TAKE PREDNISONE DIRECTED WITH FOOD. SUGGEST WARM COMPRESSES TO AREA THREE TO 4 TIMES A DAY AND SEE YOUR PRIMARY CARE DOCTOR FOR FOLLOW UP AND MANAGEMENT Referrals: [facility] (PCP) Time of Disposition: 11:56 I have reviewed the case, and I agree with, Diagnosis and Plan PATITO KELLY ASSISTANT MAINTENANCE MANAGER Sep 11, 2025 10:54
[2025-09-11] MEDS ORDERED: PRED20TA3 PO (11:58)
[2025-09-11] MEDS ORDERED: CYCL-309 PO (11:58)
[2025-09-11 12:24] VITALS: BP 142/73; PULSE 86; RESP 15; TEMP 98.6; O2SAT 99
--- NOTE | 2025-09-11 15:50 | HMCIMG ---
EXAM: CR Lumbar Spine, 3 View. CLINICAL HISTORY: NON TRAUMA LEFT GLUTEAL PAIN THAT RUNS DOWN POSTERIOR LEFT LEG COMPARISON: None provided. FINDINGS: BONES: No acute fracture or aggressive appearing osseous lesion. ALIGNMENT: Alignment is within normal limits. No significant scoliosis. DISCS / DEGENERATIVE CHANGES: The disc spaces are preserved. SOFT TISSUES: The soft tissues are unremarkable. IMPRESSION: No acute lumbar spine abnormality evident. /[place]
== END 2025-09-11 12:24 | disposition home or self-care (01) ==
LOC: EDH 10:46
DX: G57.02 Lesion of sciatic nerve, left lower limb (principal); E05.90 Thyrotoxicosis, unspecified without thyrotoxic crisis or storm; F41.9 Anxiety disorder, unspecified; Z98.890 Other specified postprocedural states
CPT/HCPCS: 99283; 72100; 96372; J1100

== ENCOUNTER 2025-10-10 11:39 | Emergency (ER) | payer OTHER ==
[~2025-10-10] VITALS: Ht 157.5 cm; Wt 99.8 kg
[~2025-10-10 11:39] MED LIST changes: +CYCL-309 PO; +PRED20TA3 PO
[2025-10-10 11:40] VITALS: BP 181/75; PULSE 76; RESP 18; TEMP 97.6
[2025-10-10] MEDS ORDERED: GENTOS OD (12:17)
--- NOTE | 2025-10-10 12:18 | ERN ---
ED Note History of Present Illness Stated Complaint: LEFT EYE PAIN Chief Complaint: Eye Problems Time Seen by MD: 11:44 Dictation: 40-year-old female presenting to the emergency department with left eye pain and redness since last night, patient reports that she uses contacts and started getting discomfort after she was removing them. Has not reinserted them since, in his currently using her glasses Allergies: Coded Allergies: No Known Allergies (Unverified Allergy, Unknown, 04/24/24) No Known Drug Allergies (Unverified Allergy, Unknown, 09/18/16) Home Meds Active Scripts Prednisone (Prednisone) 20 Mg Tablet, 1 TAB PO AD for 6 Days, #14 TAB 0 Refills TAKE 1 TAB BY MOUTH THREE TIMES PER DAY X3 DAYS, THEN TAKE 1 TAB BY MOUTH TWICE A DAY X2 DAYS, THEN TAKE 1 TAB BY MOUTH ONCE A DAY X1 DAY. TAKE WITH FOOD Prov:PATITO KELLY CONTACT ACID PLANT OPERATOR 09/11/25 Cyclobenzaprine HCl (Cyclobenzaprine HCl) 10 Mg Tablet, 1 TAB PO TID for muscle spasms for 10 Days, #30 TAB 0 Refills Prov:PATITO KELLY CONTACT ACID PLANT OPERATOR 09/11/25 Ibuprofen (Ibuprofen 800 mg Tab) 800 Mg Tab, 800 MG PO Q8H PRN for fever or pain, #30 TAB 0 Refills Prov:PATITO KELLY CONTACT ACID PLANT OPERATOR 09/11/25 Meclizine HCl (Meclizine HCl) 12.5 Mg Tablet, 1 TAB PO TID for dizziness for 10 Days, #30 TAB 0 Refills Prov:JAN KINNEY MD 10/09/24 Ibuprofen (Ibuprofen 800 mg Tab) 800 Mg Tab, 800 MG PO Q8H PRN for fever or pain, #30 TAB 0 Refills Prov:PATITO KELLY CONTACT ACID PLANT OPERATOR 04/19/24 Oseltamivir Phosphate (Tamiflu) 75 Mg Cap, 75 MG PO BID for 5 Days, #1 CAP Prov:PATITO KELLY CONTACT ACID PLANT OPERATOR 04/19/24 Ibuprofen (Ibuprofen 800 mg Tab) 800 Mg Tab, 800 MG PO Q8H PRN for fever or pain, #30 TAB 0 Refills Prov:FAYE SHORE MD 04/05/24 Ondansetron (Ondansetron Odt) 4 Mg Tab.rapdis, 4 MG PO Q6HPRN PRN for nausea, #16 TAB 0 Refills Prov:FAYE SHORE MD 04/05/24 Amoxicillin/Potassium Clav (Amox Tr-K Clv 875-125 mg Tab) 875 Mg-125 Mg Tablet, 1 EACH PO BID for 20 Days, #10 TAB 0 Refills Prov:FAYE SHORE MD 04/05/24 Oseltamivir Phosphate (Tamiflu) 75 Mg Cap, 75 MG PO BID, #10 CAP Prov:ALEKSANDRA ROTH MD 03/22/23 Oseltamivir Phosphate (Oseltamivir Phosphate) 75 Mg Capsule, 75 MG PO Q12H for 5 Days, #10 CAP Prov:ALEKSANDRA ROTH MD 03/22/23 Loperamide HCl (Imodium 2 mg Cap) 2 Mg Capsule, 2 MG PO TID for diarrhea for 3 Days, #7 CAP Prov:ALEKSANDRA ROTH MD 03/22/23 Ondansetron (Ondansetron Odt) 4 Mg Tab.rapdis, 4 MG PO Q6HPRN PRN for nausea, #16 TAB 0 Refills Prov:ALEKSANDRA ROTH MD 03/22/23 Fexofenadine/Pseudoephedrine (Jewell-D 24 Hour Tablet) 1 Each Tab.er.24h, 1 EACH PO DAILY, #30 TAB Prov:MEJIA MCDONOUGH 05/27/22 Amoxicillin/Potassium Clav (Amox Tr-K Clv 875-125 mg Tab) 1 Each Tablet, 1 EACH PO BID for 10 Days, #20 TAB Prov:MEJIA MCDONOUGH 05/27/22 Cephalexin Monohydrate (Keflex) 500 Mg Cap, 500 MG PO TID for 7 Days, #21 CAP Prov:MEJIA MCDONOUGH 05/14/22 Reported Medications Propranolol HCl (Propranolol HCl) 40 Mg Tablet, 40 MG PO BID, TAB 03/22/23 Methimazole (Methimazole) 10 Mg Tablet, 10 MG PO BID, TAB 03/22/23 Past Medical History Past Medical History: Hyperthyroid Surgical History: Tonsillectomy, Social History: Negative History: Not Applicable : 5 Para: 4 Review of System Dictation Constitutional: Negative for fever,chills, and weight loss Eyes: Per Hpi ENT: Negative for injury,pain or swelling Cardiovascular: Negative for chest pain, palpitations, and edema Respiratory: Negative for shortness of breath, cough, and wheezing, Abdomen/GI: Negative for abdominal pain, nausea, vomiting, diarrhea, and constipation Back: Negative for injury and pain : Negative for injury, bleeding and discharge MS/Extremity: Negative for injury and deformity Initial Vital Sign VS Vital Signs Date Time Temp Pulse Resp B/P (MAP) Pulse Ox O2 Delivery O2 Flow Rate FiO2 10/10/25 11:40 97.5 76 18 181/75 97 Room Air 0 Physical Exam Dictation General: awake, alert, NAD Head/Face: Normocephalic, atraumatic Eyes: PERRL, EOMI, vision at baseline, left eye exam conjunctival injection with perilimbal sparing, small corneal abrasion noted to the 1 o'clock position ENT: oral cavity clear, TMs clear, no signs of infection Neck: Trachea midline, supple, no nuchal rigidity Abdomen: Soft, non-tender, non-distended, normal bowel sounds, no guarding or rebound. Skin: Warm, dry, normal turgor, no rash MS/Extremity: Pulses equal, no cyanosis, neurovascular intact, FROM Neuro: COAx4, GCS 15, strength 5/5, CN 2-12 intact, normal cerebellar exam, normal gait, Psych: Normal behavior, mood, and affect normal ED Course ED Course Vital Signs Date Time Temp Pulse Resp B/P (MAP) Pulse Ox O2 Delivery O2 Flow Rate FiO2 10/10/25 11:40 97.5 76 18 181/75 97 Room Air 0 Medical Decision Making MDM MDM: Differential diagnosis: Rationale: Tests considered and ordered secondary to shared decision making include: Previous outside records reviewed: Old ER visits. Risk of complication and/or morbidity or mortality of patient management: None Medications-Per medication reconciliation Need for hospitalization: Patient does not meet criteria for hospitalization. Need for emergency major/minor surgery: No There are no social concerns with this patient. Prescription drug management Prescriptions will include symptomatic care Patient's prior external medical records from other ER visits were reviewed by me as indicated. Prior testing and results from previous visits were reviewed. Prior tests were taken into account with medical decision making and resource utilization, independent historian/historians were used to obtain complete medical history. I independently interpreted the test that were performed, results were reviewed by me and considered findings on radiology if ordered. Medical management and examination interpretation discussions were had by me with other qualified healthcare professionals as indicated for the patient's care. 40-year-old female with corneal abrasion superficial chamber clear no signs of cellulitis, placed on topical antibiotics and advised patient to not wear contacts until fully healed prescriptions given. DX & DISP Disposition: Discharge Departure Impression: Primary Impression: Left corneal abrasion Condition: Stable Scripts Gentamicin Sulfate (Genoptic/Garamycin 0.3% Ophth Soln) 0.3 % Opsol 1 DROP OD QID for 5 Days, #5 ML 0 Refills Prov: JAN KINNEY MD 10/10/25 Referrals: [facility] (PCP) JAN KINNEY MD Oct 10, 2025 12:18
== END 2025-10-10 12:31 | disposition home or self-care (01) ==
LOC: EDH 11:39
DX: S05.02XA Injury of conjunctiva and corneal abrasion without foreign body, left eye, initial encounter (principal); Z90.89 Acquired absence of other organs; X58.XXXA Exposure to other specified factors, initial encounter; Y93.89 Activity, other specified; Y92.89 Other specified places as the place of occurrence of the external cause; Y99.8 Other external cause status
CPT/HCPCS: 99283